=== PATIENT | female | born 1985 | race Caucasian/White ===

== ENCOUNTER 2020-06-02 12:51 | Emergency (ER) | payer OTHER ==
[~2020-06-02] VITALS: Ht 160 cm; Wt 63.5 kg
[2020-06-02 12:52] VITALS: BP 130/95; Ht 160 cm; Wt 63.5 kg
== END 2020-06-02 13:16 | disposition other institution (70) ==
LOC: ED 12:51
DX: Z02.89 Encounter for other administrative examinations (principal)